=== PATIENT | male | born 1975 | race Caucasian/White ===

== ENCOUNTER 2021-04-20 07:36 | Day surgery (SDC) | payer OTHER ==
[~2021-04-20] VITALS: Ht 177.8 cm; Wt 92.2 kg
[~2021-04-20 07:36] MED LIST: ALBU90OI INH; AMPDEX5 PO; OMEP20ER PO; Robaxin750 MG PO; SILD25T PO
[2021-04-20] MEDS ORDERED: NAPR500 (08:10)
[2021-04-20] MEDS ORDERED: SODBIC650 (08:11)
[2021-04-20] MEDS ORDERED: ADDERALL 10 MG10 MG (08:11)
== END 2021-04-20 10:32 | disposition home or self-care (01) ==
LOC: ORSCSDS 07:36
PROVIDERS: Student in an Organized Health Care Education/Training Program
PROC: 0DBK8ZX Excision of Ascending Colon, Via Natural or Artificial Opening Endoscopic, Diagnostic (ICD-10-PCS; principal; 2021-04-20 09:15)
PROC: 0DB68ZX Excision of Stomach, Via Natural or Artificial Opening Endoscopic, Diagnostic (ICD-10-PCS; principal; 2021-04-20 09:15)
PROC: 0DB98ZX Excision of Duodenum, Via Natural or Artificial Opening Endoscopic, Diagnostic (ICD-10-PCS; principal; 2021-04-20 09:15)
PROC: 0DBN8ZX Excision of Sigmoid Colon, Via Natural or Artificial Opening Endoscopic, Diagnostic (ICD-10-PCS; principal; 2021-04-20 09:15)
DX: K70.30 Alcoholic cirrhosis of liver without ascites (principal); K76.6 Portal hypertension; K31.89 Other diseases of stomach and duodenum; K29.50 Unspecified chronic gastritis without bleeding; K63.5 Polyp of colon; K57.30 Diverticulosis of large intestine without perforation or abscess without bleeding; K64.8 Other hemorrhoids; K64.4 Residual hemorrhoidal skin tags; Z12.11 Encounter for screening for malignant neoplasm of colon; F90.9 Attention-deficit hyperactivity disorder, unspecified type; E78.5 Hyperlipidemia, unspecified; Z79.899 Other long term (current) drug therapy; F17.210 Nicotine dependence, cigarettes, uncomplicated
CPT/HCPCS: 88305; 88342; J2250; J2704; J7040; J7120

== ENCOUNTER 2023-04-25 11:42 | Emergency (ER) | payer OTHER ==
[~2023-04-25] VITALS: Ht 177.8 cm; Wt 90.7 kg
[~2023-04-25 11:42] MED LIST changes: +ADDERALL 10 MG10 MG; +NAPR500; +OMEP20ER; -SILD25T PO; +SODBIC650; +THERA-D2000 UNIT; +Viagra100 MG
[2023-04-25 12:36] LABS: BASOPHILS ABSOLUTE AUTO 0.06 K/mm3 (0.00-0.23); BASOPHILS PERCENT AUTO 1 % (0-2); EOSINOPHILS ABSOLUTE AUTO 0.02 K/mm3 (0.00-0.68); EOSINOPHILS PERCENT AUTO 0 % (0-6); Hematocrit 33.3 % (37.0-53.0); Hemoglobin 11.8 g/dL (13.5-17.5); IMMATURE GRAN ABSOLUTE AUTO 0.03 K/mm3 (0.00-0.10); IMMATURE GRAN PERCENT AUTO 0 % (0-1); LYMPHOCYTES ABSOLUTE AUTO 1.27 K/mm3 (0.84-5.20); LYMPHOCYTES PERCENT AUTO 15 % (21-46); MONOCYTES ABSOLUTE AUTO 0.74 K/mm3 (0.16-1.47); MONOCYTES PERCENT AUTO 9 % (4-13); Mean Corpuscular HGB 34.7 pg (26.0-34.0); Mean Corpuscular HGB Conc 35.4 g/dL (31.5-36.5); Mean Corpuscular Volume 98 fL (80-100); Mean Platelet Volume 10.9 fL (9.1-12.4); NEUTROPHILS ABSOLUTE AUTO 6.14 K/mm3 (1.96-9.15); NEUTROPHILS PERCENT AUTO 74 % (41-73); Platelet Count 101 K/mm3 (150-400); RDW Coefficient Variation 14.6 % (11.7-14.2); RDW Standard Deviation 52.8 fL (35.1-46.3); White Blood Cell Count 8.26 K/mm3 (4.00-11.30)
[2023-04-25 12:50] LABS: Influenza A, PCR NEGATIVE (NEGATIVE); Influenza B, PCR NEGATIVE (NEGATIVE); Resp Syncytial Virus, PCR NEGATIVE (NEGATIVE); SARS-Cov-2 (COVID-19) PCR, MMC NEGATIVE (NEGATIVE)
[2023-04-25 12:53] LABS: Albumin, Blood 2.4 g/dL (3.4-5.0); Albumin/Globulin Ratio 0.5 (0.8-1.8); Bilirubin, Total 6.1 mg/dL (0.1-1.0); Calcium, Blood 7.8 mg/dL (8.5-10.1); Creatinine, Blood 0.61 mg/dL (0.60-1.20); Globulin, Blood 4.5 g/dL (2.2-4.0); Potassium, Blood 4.3 mmol/L (3.5-5.5); Total Protein, Blood 6.9 g/dL (6.4-8.2)
[2023-04-25 13:25] LABS: Source, Urine Clean Catch
[2023-04-25 13:38] LABS: Appearance, Urine Clear (Clear); Blood, Urine Neg (Neg); Color, Urine Amber (P-Yellow); Glucose Qualitative, Urine 1+ (Neg); Ketones, Urine 4+ (Neg); Leukocyte Esterase, Urine 1+ (Neg); Nitrite, Urine Pos (Neg); Protein, Urine 2+ (Neg); Urobilinogen, Urine 1+ (Normal)
[2023-04-25 13:51] LABS: Bilirubin, Urine 1+ (Neg)
[2023-04-25 13:59] LABS: Hyaline Casts 0-2 /lpf (0-2); Mucus Heavy (0-Heavy)
[2023-04-25 14:00] LABS: Red Blood Cells, Urine 0-2 /hpf (0-2); Squamous Epithelial Cells Mod /hpf (Few)
[2023-04-25 14:01] LABS: Amorphous Light (0-Heavy); Bacteria Few /hpf
[2023-04-25 14:02] LABS: Transitional Epithelial Cells Rare /hpf (0-Rare)
[2023-04-25] MEDS ORDERED: Pantoprazole Sodium 40 MG Injection IV ONE (16:15)
[2023-04-25] MEDS ORDERED: CefTRIAXone Sodium 1,000 MG in NS 50 ML IV ONE (16:15)
[2023-04-25] MEDS ORDERED: Octreotide Acetate 50 MCG in NS 50 ML IV ONE (16:15)
[2023-04-25] MEDS ORDERED: Pantoprazole Sodium 40 MG in NS 50 ML IV SCH (16:15)
[2023-04-25 17:05] LABS: Hematocrit 27.9 % (37.0-53.0); Hemoglobin 9.8 g/dL (13.5-17.5)
[2023-04-25] MEDS ORDERED: Octreotide Acetate 500 MCG in NS 250 ML IV SCH (17:10)
[2023-04-25] MEDS ORDERED: NS 1,000 ML IV SCH (17:40)
[2023-04-25 17:48] LABS: International Normalized Ratio 1.57; Prothrombin Time Results 16.1 Sec (9.7-11.5)
[2023-04-25] MEDS ORDERED: Ondansetron HCl 2 MG / ML 2ML Vial IV ONE (18:10)
[2023-04-25 20:28] VITALS: BP 130/71
== END 2023-04-25 20:46 | disposition short-term general hospital (02) ==
LOC: ER 11:42
PROVIDERS: Student in an Organized Health Care Education/Training Program
DX: K92.2 Gastrointestinal hemorrhage, unspecified (principal); D62 Acute posthemorrhagic anemia; I85.00 Esophageal varices without bleeding; E80.7 Disorder of bilirubin metabolism, unspecified; R74.01 Elevation of levels of liver transaminase levels; Z86.59 Personal history of other mental and behavioral disorders; J44.9 Chronic obstructive pulmonary disease, unspecified; Z79.899 Other long term (current) drug therapy
CPT/HCPCS: 0241U; 74177; 80053; 81001; 82248; 83690; 85014; 85018; 85025; 85610; 86850; 86900; 86901; 96365-59; 96366; 96367; 96368; 96375; 96376; 99285-25; C9113; J0696; J2354; J2405; J7050; Q9967

== ENCOUNTER 2023-09-26 06:26 | Emergency (ER) | payer OTHER ==
[~2023-09-26] VITALS: Ht 182.9 cm; Wt 81.7 kg
[2023-09-26] MEDS ORDERED: FentaNYL Citrate 50 MCG/ML 2 ML Injection IV ONE (06:45)
[2023-09-26] MEDS ORDERED: Ondansetron HCl 2 MG / ML 2ML Vial IV ONE (06:45)
[2023-09-26] MEDS ORDERED: Pantoprazole Sodium 40 MG Injection IV ONE (06:45)
[2023-09-26 06:52] LABS: BASOPHILS ABSOLUTE AUTO 0.03 K/mm3 (0.00-0.23); BASOPHILS PERCENT AUTO 1 % (0-2); EOSINOPHILS ABSOLUTE AUTO 0.07 K/mm3 (0.00-0.68); EOSINOPHILS PERCENT AUTO 2 % (0-6); Hematocrit 38.4 % (37.0-53.0); Hemoglobin 12.8 g/dL (13.5-17.5); IMMATURE GRAN PERCENT AUTO 0 % (0-1); LYMPHOCYTES ABSOLUTE AUTO 0.86 K/mm3 (0.84-5.20); LYMPHOCYTES PERCENT AUTO 25 % (21-46); MONOCYTES ABSOLUTE AUTO 0.42 K/mm3 (0.16-1.47); MONOCYTES PERCENT AUTO 12 % (4-13); Mean Corpuscular HGB 28.8 pg (26.0-34.0); Mean Corpuscular HGB Conc 33.3 g/dL (31.5-36.5); Mean Corpuscular Volume 87 fL (80-100); NEUTROPHILS ABSOLUTE AUTO 2.03 K/mm3 (1.96-9.15); NEUTROPHILS PERCENT AUTO 60 % (41-73); Platelet Count 60 K/mm3 (150-400); RDW Coefficient Variation 21.1 % (11.7-14.2); RDW Standard Deviation 66.2 fL (35.1-46.3); Red Blood Cell Count 4.44 M/mm3 (4.30-5.90); White Blood Cell Count 3.41 K/mm3 (4.00-11.30)
[2023-09-26 07:12] LABS: Albumin, Blood 2.6 g/dL (3.4-5.0); Albumin/Globulin Ratio 0.6 (0.8-1.8); Bilirubin, Total 3.4 mg/dL (0.1-1.0); Bun/Creatinine Ratio 11.8 (12.0-20.0); Calcium, Blood 7.7 mg/dL (8.5-10.1); Creatinine, Blood 0.51 mg/dL (0.60-1.20); Globulin, Blood 4.4 g/dL (2.2-4.0); Potassium, Blood 3.8 mmol/L (3.5-5.5)
[2023-09-26 07:13] LABS: International Normalized Ratio 1.47; Prothrombin Time Results 15.3 Sec (9.7-11.5)
[2023-09-26] MEDS ORDERED: Mag Hydrox/AL Hydrox/Simeth 30 ML UDC PO ONE (07:50)
[2023-09-26] MEDS ORDERED: NS 1,000 ML IV SCH (07:50)
[2023-09-26] MEDS ORDERED: Lidocaine 2% Viscous Soln 15 ML UDC PO ONE (07:50)
[2023-09-26] MEDS ORDERED: Sucralfate 1000MG / 10ML UD BTL PO ONE (08:45)
[2023-09-26] MEDS ORDERED: OxyCODONE HCL 5 MG TAB PO ONE (08:45)
[2023-09-26] MEDS ORDERED: SUCR1 PO (09:51)
[2023-09-26] MEDS ORDERED: ONDA4ODT MM (09:51)
[2023-09-26] MEDS ORDERED: Roxicodone5 MG PO (09:51)
[2023-09-26 10:00] VITALS: BP 133/88
== END 2023-09-26 10:12 | disposition home or self-care (01) ==
LOC: ER 06:26
PROVIDERS: Emergency Medicine
DX: K29.70 Gastritis, unspecified, without bleeding (principal); K74.60 Unspecified cirrhosis of liver; Z79.899 Other long term (current) drug therapy
CPT/HCPCS: 74177; 80053; 83690; 84484; 85025; 85610; A9270; C9113; J2405; J3010; J7030; Q9967

== ENCOUNTER 2024-06-07 16:24 | Emergency (ER) | payer OTHER ==
[~2024-06-07] VITALS: Ht 180.3 cm; Wt 88.5 kg
[~2024-06-07 16:24] MED LIST changes: +ONDA4ODT MM; +Roxicodone5 MG PO; +SUCR1 PO
[2024-06-07] MEDS ORDERED: Amoxicillin/Clavulanate K 875 MG Tab PO ONE (19:45)
[2024-06-07] MEDS ORDERED: HYDROcodone 7.5-APAP 325 TAB PO ONE (19:50)
[2024-06-07 20:52] LABS: BASOPHILS ABSOLUTE AUTO 0.01 K/mm3 (0.00-0.23); BASOPHILS PERCENT AUTO 1 % (0-2); Hemoglobin 12.5 g/dL (13.5-17.5); LYMPHOCYTES ABSOLUTE AUTO 0.16 K/mm3 (0.84-5.20); LYMPHOCYTES PERCENT AUTO 7 % (21-46); MONOCYTES PERCENT AUTO 9 % (4-13); Mean Corpuscular HGB 31.6 pg (26.0-34.0); Mean Corpuscular HGB Conc 34.7 g/dL (31.5-36.5); Mean Corpuscular Volume 91 fL (80-100); RDW Coefficient Variation 17.4 % (11.7-14.2); RDW Standard Deviation 58.6 fL (35.1-46.3); Red Blood Cell Count 3.95 M/mm3 (4.30-5.90); White Blood Cell Count 2.19 K/mm3 (4.00-11.30)
[2024-06-07 20:55] LABS: EOSINOPHILS ABSOLUTE AUTO 0.01 K/mm3 (0.00-0.68); EOSINOPHILS PERCENT AUTO 1 % (0-6); IMMATURE GRAN ABSOLUTE AUTO 0.02 K/mm3 (0.00-0.10); IMMATURE GRAN PERCENT AUTO 1 % (0-1); NEUTROPHILS ABSOLUTE AUTO 1.79 K/mm3 (1.96-9.15); NEUTROPHILS PERCENT AUTO 82 % (41-73)
[2024-06-07 20:56] LABS: Platelet Count 27 K/mm3 (150-400)
[2024-06-07 21:05] LABS: International Normalized Ratio 1.5; Prothrombin Time Results 15.6 Sec (9.7-11.5)
[2024-06-07 21:12] LABS: Albumin, Blood 2.1 g/dL (3.4-5.0); Albumin/Globulin Ratio 0.5 (0.8-1.8); Bilirubin, Total 4.9 mg/dL (0.1-1.0); Bun/Creatinine Ratio 15.7 (12.0-20.0); Calcium, Blood 7.5 mg/dL (8.5-10.1); Creatinine, Blood 0.64 mg/dL (0.60-1.20); Globulin, Blood 3.9 g/dL (2.2-4.0); Potassium, Blood 3.8 mmol/L (3.5-5.5)
[2024-06-07] MEDS ORDERED: Octreotide Acetate 50 MCG in NS 50 ML IV ONE (21:35)
[2024-06-07] MEDS ORDERED: NS 1,000 ML IV SCH (21:40)
[2024-06-07] MEDS ORDERED: FentaNYL Citrate 50 MCG/ML 2 ML Injection IV ONE (21:40)
[2024-06-07] MEDS ORDERED: CefTRIAXone 2000 MG Vial IM ONE (21:40)
[2024-06-07] MEDS ORDERED: Pantoprazole Sodium 40 MG Injection IV ONE (21:40)
[2024-06-08] MEDS ORDERED: Octreotide Acetate 500 MCG in NS 250 ML IV SCH (00:05)
[2024-06-08 01:00] VITALS: BP 114/66
== END 2024-06-08 01:37 | disposition short-term general hospital (02) ==
LOC: ER 16:24
PROVIDERS: Student in an Organized Health Care Education/Training Program
DX: K92.0 Hematemesis (principal); I85.00 Esophageal varices without bleeding; K72.90 Hepatic failure, unspecified without coma; L03.211 Cellulitis of face; Z79.899 Other long term (current) drug therapy; Z79.1 Long term (current) use of non-steroidal anti-inflammatories (NSAID); Z79.01 Long term (current) use of anticoagulants; Z79.51 Long term (current) use of inhaled steroids; Z79.890 Hormone replacement therapy; Z79.2 Long term (current) use of antibiotics
CPT/HCPCS: 36430; 64400; 70491; 80053; 82140; 83690; 85025; 85610; 85730; 86850; 86900; 86901; 93005; 93010; 96361; 96365; 96366; 96372; 96375; 99285-25; A9270; J0696; J2354; J2470; J3010; J7030; J7050; P9035; Q9967

== ENCOUNTER 2024-06-10 21:17 | Inpatient (IN) | payer OTHER ==
[~2024-06-10] VITALS: Ht 177.8 cm; Wt 85.0 kg
[2024-06-10 22:14] LABS: BASOPHILS ABSOLUTE AUTO 0.05 K/mm3 (0.00-0.23); BASOPHILS PERCENT AUTO 1 % (0-2); EOSINOPHILS ABSOLUTE AUTO 0.09 K/mm3 (0.00-0.68); EOSINOPHILS PERCENT AUTO 2 % (0-6); Hematocrit 39.7 % (37.0-53.0); Hemoglobin 13.5 g/dL (13.5-17.5); IMMATURE GRAN ABSOLUTE AUTO 0.08 K/mm3 (0.00-0.10); IMMATURE GRAN PERCENT AUTO 2 % (0-1); LYMPHOCYTES ABSOLUTE AUTO 0.72 K/mm3 (0.84-5.20); LYMPHOCYTES PERCENT AUTO 16 % (21-46); MONOCYTES ABSOLUTE AUTO 0.65 K/mm3 (0.16-1.47); MONOCYTES PERCENT AUTO 15 % (4-13); Mean Corpuscular HGB 31.9 pg (26.0-34.0); Mean Corpuscular Volume 94 fL (80-100); NEUTROPHILS ABSOLUTE AUTO 2.82 K/mm3 (1.96-9.15); NEUTROPHILS PERCENT AUTO 64 % (41-73); RDW Coefficient Variation 17.6 % (11.7-14.2); RDW Standard Deviation 60.3 fL (35.1-46.3); Red Blood Cell Count 4.23 M/mm3 (4.30-5.90); White Blood Cell Count 4.41 K/mm3 (4.00-11.30)
[2024-06-10 22:25] LABS: Albumin, Blood 2.1 g/dL (3.4-5.0); Albumin/Globulin Ratio 0.5 (0.8-1.8); Bilirubin, Total 8.5 mg/dL (0.1-1.0); Bun/Creatinine Ratio 16.4 (12.0-20.0); Calcium, Blood 7.8 mg/dL (8.5-10.1); Creatinine, Blood 0.61 mg/dL (0.60-1.20); Globulin, Blood 4.5 g/dL (2.2-4.0); Potassium, Blood 4.3 mmol/L (3.5-5.5); Total Protein, Blood 6.6 g/dL (6.4-8.2)
[2024-06-10 22:26] LABS: Platelet Count 27 K/mm3 (150-400)
[2024-06-10] MEDS ORDERED: OxyCODONE HCL 5 MG TAB PO ONE (23:10)
[2024-06-10] MEDS ORDERED: Ondansetron 4 MG TAB PO ONE (23:10)
[2024-06-11] MEDS ORDERED: HYDROmorphone HCl/Pf 1MG SYR IV ONE (00:45)
[2024-06-11] MEDS ORDERED: Ondansetron HCl 2 MG / ML 2ML Vial IV PRN (03:10)
[2024-06-11] MEDS ORDERED: OxyCODONE HCL 5 MG TAB PO PRN (03:10)
[2024-06-11] MEDS ORDERED: Naloxone HCl 0.4MG / ML 1ML Vial IV PRN (03:15)
[2024-06-11] MEDS ORDERED: Acetaminophen 325 MG TABLET PO PRN (03:15)
[2024-06-11] MEDS ORDERED: HYDROmorphone HCl/Pf 1MG SYR IV PRN (03:15)
[2024-06-11] MEDS ORDERED: NS 1,000 ML IV SCH (04:00)
[2024-06-11] MEDS ORDERED: AMPDEX10 (07:18)
[2024-06-11] MEDS ORDERED: Carvedilol 3.125 MG Tab PO SCH (08:00)
[2024-06-11] MEDS ORDERED: LORazepam 2 MG/ML 1ML Injection IV PRN ×2 (09:00→09:05)
[2024-06-11] MEDS ORDERED: ChlordiazePOXIDE 25 MG Cap PO PRN ×2 (09:00→09:05)
[2024-06-11] MEDS ORDERED: Docusate Sodium 100 MG Cap PO SCH (09:00)
[2024-06-11] MEDS ORDERED: Thiamine HCl 100 MG in NS 50 ML IV SCH (09:30)
[2024-06-11 09:50] LABS: Bilirubin, Direct 5.5 mg/dL (0.0-0.3); Bilirubin, Indirect 2.4 mg/dL (0.1-0.7); Bilirubin, Total 7.9 mg/dL (0.1-1.0); CHOL/HDL RATIO 6.5; Cholesterol 85 mg/dL (50-200); Ethanol (Alcohol), Blood, Med <3 mg/dL; HDL Cholesterol 13 mg/dL (>39); LDL/HDL RATIO 3.4; Lactate Dehydrogenase (Ld),Bld 211 U/L (100-240); Low Density Lipoprotein Chol 44 mg/dL (0-110); Triglycerides 140 mg/dL (30-160); Very Low Density Lipoprot Chol 28 mg/dL (6-32)
[2024-06-11] MEDS ORDERED: Folic Acid 1 MG in NS 50 ML IV SCH (10:00)
[2024-06-11 10:45] LABS: Hematocrit 35.2 % (37.0-53.0)
[2024-06-11] MEDS ORDERED: Octreotide Acetate 500 MCG in NS 250 ML IV SCH (11:30)
[2024-06-11] MEDS ORDERED: CefTRIAXone Sodium 1,000 MG in NS 100 ML IV SCH (11:45)
[2024-06-11 11:50] LABS: IMMATURE RETIC FRACTION 16.9 % (2.3-16.0); RETIC HGB EQUIVALENT 37.9 pg (28.20-36.60); RETICULOCYTE ABSOLUTE 0.1016 M/mm3 (0.0200-0.1100); RETICULOCYTE COUNT PERCENT 2.68 % (0.50-2.50)
[2024-06-11 13:33] LABS: BASOPHILS ABSOLUTE AUTO 0.05 K/mm3 (0.00-0.23); BASOPHILS PERCENT AUTO 1 % (0-2); EOSINOPHILS ABSOLUTE AUTO 0.12 K/mm3 (0.00-0.68); EOSINOPHILS PERCENT AUTO 3 % (0-6); Hematocrit 34.6 % (37.0-53.0); Hemoglobin 11.8 g/dL (13.5-17.5); IMMATURE GRAN ABSOLUTE AUTO 0.09 K/mm3 (0.00-0.10); IMMATURE GRAN PERCENT AUTO 2 % (0-1); LYMPHOCYTES ABSOLUTE AUTO 0.75 K/mm3 (0.84-5.20); LYMPHOCYTES PERCENT AUTO 17 % (21-46); MONOCYTES ABSOLUTE AUTO 0.85 K/mm3 (0.16-1.47); MONOCYTES PERCENT AUTO 20 % (4-13); Mean Corpuscular HGB 32.1 pg (26.0-34.0); Mean Corpuscular HGB Conc 34.1 g/dL (31.5-36.5); Mean Corpuscular Volume 94 fL (80-100); Mean Platelet Volume 10.3 fL (9.1-12.4); NEUTROPHILS ABSOLUTE AUTO 2.45 K/mm3 (1.96-9.15); NEUTROPHILS PERCENT AUTO 57 % (41-73); Platelet Count 56 K/mm3 (150-400); RDW Coefficient Variation 17.4 % (11.7-14.2); RDW Standard Deviation 60.2 fL (35.1-46.3); Red Blood Cell Count 3.68 M/mm3 (4.30-5.90); White Blood Cell Count 4.31 K/mm3 (4.00-11.30)
[2024-06-11 14:09] LABS: Source, Urine Clean Catch
[2024-06-11 15:04] LABS: Appearance, Urine Clear (Clear); Blood, Urine Neg (Neg); Color, Urine Amber (P-Yellow); Glucose Qualitative, Urine Neg (Neg); Ketones, Urine Neg (Neg); Leukocyte Esterase, Urine Neg (Neg); Nitrite, Urine Neg (Neg); Protein, Urine Neg (Neg); Urobilinogen, Urine 3+ (Normal); pH, Urine 6.5 (5.0-8.0)
[2024-06-11 16:03] LABS: Bilirubin, Urine 1+ (Neg)
[2024-06-11 16:18] VITALS: BP 127/85
[2024-06-11] MEDS ORDERED: Pantoprazole Sodium 40 MG Injection IV SCH (16:30)
--- NOTE | 2024-06-11 18:22 | NUR ---
SHIFT NOTE PT RESTING. C/O OF HIS TEETH HURTING ON THE LEFT SIDE. MEDICATED WITH ORAL PAIN MEDICATION. PT RANKED HIS TOOTH PAIN 8/10. HIS ABD DISCOMFORT A 3/10. HE STATED THAT THE TOOTH PAIN HAS BEEN GETTING WORSE OVER SEVERAL WEEKS. DR MEYERS CALLED SHE IS REFERRRING HIS GI CONSULT TO DR NGUYEN D/T PT HAVING CYROSIS. VSS. VOIDED X1. URINE ORANGISH. SANDOSTATIN INFUSING AT 25 ML/HR. 0.9% NS INFUSING AT 100 ML/HR BAG #2 HANGING. CARE ONGOING.
[2024-06-11 20:21] VITALS: BP 111/74
[2024-06-12] MEDS ORDERED: NS 250 ML IV PRN (00:40)
--- NOTE | 2024-06-12 02:59 | NUR ---
SHIFT SUMMARY NO ACUTE EVENTS DURING THIS SHIFT. NPO. PT C/O 10/07 ABDOMINAL PAIN, MEDICATED PER EMAR. FINISHED INFUSING THE 2ND BAG OF NS ORDERED. Q6 BG 97 @MIDNIGHT. PT DENIES N/V. NO COUGH NOTED DURING THIS SHIFT. BED AT THE LOWEST POSITION, CALL LIGHT W/I REACH. PT IS A/O X4, TALKATIVE, ABLE TO MAKE HIS NEEDS KNOWN AND COOPERATIVE WITH CARE.
[2024-06-12 05:32] LABS: BASOPHILS ABSOLUTE AUTO 0.07 K/mm3 (0.00-0.23); BASOPHILS PERCENT AUTO 2 % (0-2); EOSINOPHILS ABSOLUTE AUTO 0.11 K/mm3 (0.00-0.68); EOSINOPHILS PERCENT AUTO 3 % (0-6); Hematocrit 39.1 % (37.0-53.0); Hemoglobin 13.4 g/dL (13.5-17.5); IMMATURE GRAN ABSOLUTE AUTO 0.15 K/mm3 (0.00-0.10); IMMATURE GRAN PERCENT AUTO 4 % (0-1); LYMPHOCYTES ABSOLUTE AUTO 0.73 K/mm3 (0.84-5.20); LYMPHOCYTES PERCENT AUTO 18 % (21-46); MONOCYTES ABSOLUTE AUTO 0.66 K/mm3 (0.16-1.47); MONOCYTES PERCENT AUTO 17 % (4-13); Mean Corpuscular HGB Conc 34.3 g/dL (31.5-36.5); Mean Corpuscular Volume 93 fL (80-100); Mean Platelet Volume 10.3 fL (9.1-12.4); NEUTROPHILS ABSOLUTE AUTO 2.27 K/mm3 (1.96-9.15); NEUTROPHILS PERCENT AUTO 57 % (41-73); Platelet Count 58 K/mm3 (150-400); RDW Coefficient Variation 17.5 % (11.7-14.2); RDW Standard Deviation 59.3 fL (35.1-46.3); Red Blood Cell Count 4.19 M/mm3 (4.30-5.90); White Blood Cell Count 3.99 K/mm3 (4.00-11.30)
[2024-06-12 05:58] LABS: Albumin/Globulin Ratio 0.5 (0.8-1.8); Bilirubin, Total 9.7 mg/dL (0.1-1.0); Calcium, Blood 7.8 mg/dL (8.5-10.1); Creatinine, Blood 0.53 mg/dL (0.60-1.20); Globulin, Blood 3.9 g/dL (2.2-4.0); Potassium, Blood 4.4 mmol/L (3.5-5.5); Total Protein, Blood 5.9 g/dL (6.4-8.2)
[2024-06-12 06:07] VITALS: BP 107/57
[2024-06-12 07:29] VITALS: BP 103/65
[2024-06-12] MEDS ORDERED: Polyethylene Glycol 3350 17 gm PO PRN (08:15)
[2024-06-12] MEDS ORDERED: Sennosides 8.6 MG Tab PO PRN (08:15)
[2024-06-12] MEDS ORDERED: Docusate Sodium 100 MG Cap PO SCH (09:00)
[2024-06-12] MEDS ORDERED: Insulin Human Lispro 100 Units/ML 3ML Syringe SC SCH (11:30)
--- NOTE | 2024-06-12 12:03 | NUR ---
[facility] RX DR WALKER REQUESTED CALL TO PT STATED PHARAMCY. VERIFIES 3 NEW PERSCRIPTIONS FROM [facility]. 1. PROTONIX 40MG DAILY 2. CIPRO 500MG PO BID X5 DAYS 3. HYDROCODONE/APAP 5/325MG-1 TAB Q6H PRN PAIN. CARE ONGOING.
[2024-06-12 16:15] VITALS: BP 122/74
--- NOTE | 2024-06-12 18:30 | NUR ---
SHIFT NOTE PT ATE REGULAR DIET QUICKLY FOR DINNER. HE WAS CAUTIONED TO EAT SLOWLY. AC/HS BLOOD SUGAR. COVERED WITH SLIDING SCALE INSULIN PER ORDER. MEDICATED FOR PAIN PER EMAR. IV SITE FLUSHJING WITH OUT DISCOMFORT. WITH ENCOURAGEMENT PT IS UP IN ROOM AND USING THE BATHROOM. VOIDED URINE DARK BROWN/A,IKE CLEAR. SKIN CONTINUES TO BE YELLOWISH IN COLOR. CARE ONGOING.
[2024-06-12 19:04] VITALS: BP 99/59
[2024-06-12 21:25] VITALS: BP 106/63
[2024-06-13 04:26] VITALS: BP 103/57
[2024-06-13 07:26] VITALS: BP 105/69
[2024-06-13] MEDS ORDERED: MIRALAX17 GM PO (13:57)
[2024-06-13] MEDS ORDERED: Colace100 MG PO (13:57)
[2024-06-13] MEDS ORDERED: CIPR500 PO (13:58)
[2024-06-13] MEDS ORDERED: Inderal40 MG PO (13:59)
[2024-06-13] MEDS ORDERED: SUCR1 PO (14:00)
--- NOTE | 2024-06-13 15:05 | NUR ---
DISCHARGE PT AOX4, COOPERATIVE, ABLE TO MAKE NEEDS KNOWN. PT AMBULATORY IN ROOM. MILD COMPLAINTS OF PAIN. THIS RN WENT OVER DC PAPERWORK WITH PT. PT ACKNOWLEDGED INSTRUCTIONS AND EDUCATION. THIS RN DC'D IV WITH EVENTS. PT WAS TAKEN OUT OF ROOM IN WHEELCHAIR BY CERTIFIED PHYSICIAN'S ASSISTANT. BELONGINGS WENT WITH PT.
[2024-06-13 15:28] LABS: PETH 16:0/18:1 (POPETH) 548 ng/mL; PETH 16:0/18:2 (PLPETH) 876 ng/mL
== END 2024-06-13 15:04 | disposition home or self-care (01) | DRG 378 ==
LOC: ER 21:17 → ERHOLD 21:18 → MEDS 06-11 14:43 → ERHOLD 06-11 14:44 → MEDS 06-11 16:13
PROVIDERS: Family Medicine; Student in an Organized Health Care Education/Training Program; ADMIT Student in an Organized Health Care Education/Training Program
DX: K29.71 Gastritis, unspecified, with bleeding (principal); E72.20 Disorder of urea cycle metabolism, unspecified; E87.1 Hypo-osmolality and hyponatremia; K86.1 Other chronic pancreatitis; K70.30 Alcoholic cirrhosis of liver without ascites; F17.210 Nicotine dependence, cigarettes, uncomplicated; E80.6 Other disorders of bilirubin metabolism; D69.6 Thrombocytopenia, unspecified; K70.9 Alcoholic liver disease, unspecified; E11.9 Type 2 diabetes mellitus without complications; E66.3 Overweight; F10.10 Alcohol abuse, uncomplicated; K59.00 Constipation, unspecified; Z79.51 Long term (current) use of inhaled steroids; Z79.899 Other long term (current) drug therapy; Z79.891 Long term (current) use of opiate analgesic; Z87.19 Personal history of other diseases of the digestive system
CPT/HCPCS: 36415; 74177; 80053; 80061; 80320; 81003; 82140; 82247; 82248; 82947; 82977; 83036; 83615; 83690; 85014; 85018; 85025; 85045; 93005; 93010; 96361; 96365-59; 96366; 96367; 96375; 96376; 99285-25; A9270; G0378; G0480; J0696; J1171; J2354; J2405; J2470; J3411; J7030; J7050; Q9967

== ENCOUNTER 2024-08-26 05:35 | Emergency (ER) | payer OTHER ==
[~2024-08-26] VITALS: Ht 177.8 cm; Wt 95.2 kg
[~2024-08-26 05:35] MED LIST changes: +AMPDEX10; +Aldactone50 MG PO; +CIPR500 PO; +Colace100 MG PO; +Inderal40 MG PO; +Lasix20 MG PO; +MIRALAX17 GM PO
[2024-08-26 06:10] LABS: BASOPHILS ABSOLUTE AUTO 0.04 K/mm3 (0.00-0.23); BASOPHILS PERCENT AUTO 1 % (0-2); EOSINOPHILS ABSOLUTE AUTO 0.11 K/mm3 (0.00-0.68); EOSINOPHILS PERCENT AUTO 2 % (0-6); Hematocrit 32.6 % (37.0-53.0); Hemoglobin 10.9 g/dL (13.5-17.5); IMMATURE GRAN ABSOLUTE AUTO 0.02 K/mm3 (0.00-0.10); IMMATURE GRAN PERCENT AUTO 0 % (0-1); LYMPHOCYTES ABSOLUTE AUTO 1.32 K/mm3 (0.84-5.20); LYMPHOCYTES PERCENT AUTO 29 % (21-46); MONOCYTES ABSOLUTE AUTO 0.88 K/mm3 (0.16-1.47); MONOCYTES PERCENT AUTO 19 % (4-13); Mean Corpuscular HGB 32.4 pg (26.0-34.0); Mean Corpuscular HGB Conc 33.4 g/dL (31.5-36.5); Mean Corpuscular Volume 97 fL (80-100); Mean Platelet Volume 10.9 fL (9.1-12.4); NEUTROPHILS ABSOLUTE AUTO 2.23 K/mm3 (1.96-9.15); NEUTROPHILS PERCENT AUTO 49 % (41-73); Platelet Count 66 K/mm3 (150-400); RDW Standard Deviation 67.6 fL (35.1-46.3); Red Blood Cell Count 3.36 M/mm3 (4.30-5.90)
[2024-08-26 06:22] LABS: Albumin/Globulin Ratio 0.4 (0.8-1.8); Bilirubin, Total 5.9 mg/dL (0.1-1.0); Bun/Creatinine Ratio 11.1 (12.0-20.0); Calcium, Blood 7.3 mg/dL (8.5-10.1); Creatinine, Blood 0.63 mg/dL (0.60-1.20); Globulin, Blood 4.6 g/dL (2.2-4.0); Potassium, Blood 3.6 mmol/L (3.5-5.5); Total Protein, Blood 6.6 g/dL (6.4-8.2)
[2024-08-26] MEDS ORDERED: FentaNYL Citrate 50 MCG/ML 2 ML Injection IV ONE (06:40)
[2024-08-26] MEDS ORDERED: Magnesium Sulf 2 GM/Water 50ML 50 ML IV ONE (06:50)
[2024-08-26] MEDS ORDERED: Calcium Gluconate 10% 1,000 MG in NS 50 ML IV ONE (06:50)
[2024-08-26] MEDS ORDERED: Diazepam 5 MG / ML 2ML SYR IV ONE (08:05)
[2024-08-26 09:27] LABS: U Amphetamine Screen DETECTED; U Barbituate Screen Not Detected; U Benzodiazapine Screen Not Detected; U Buprenorphine Screen Not Detected; U Cannabinoids Screen DETECTED; U Cocaine Screen Not Detected; U Methadone Screen Not Detected; U Methamphetamine Screen Not Detected; U Opiates Screen Not Detected; U Oxycodone Screen Not Detected; U Phencyclidine Screen Not Detected
[2024-08-26] MEDS ORDERED: OLANZapine ODT 5 MG Tab MM ONE (10:30)
[2024-08-26 11:00] VITALS: BP 136/87
== END 2024-08-26 11:30 | disposition home or self-care (01) ==
LOC: ER 05:35
PROVIDERS: Emergency Medicine; Student in an Organized Health Care Education/Training Program
DX: E83.51 Hypocalcemia (principal); M79.10 Myalgia, unspecified site; K70.30 Alcoholic cirrhosis of liver without ascites; F17.200 Nicotine dependence, unspecified, uncomplicated; Z79.899 Other long term (current) drug therapy
CPT/HCPCS: 80053; 82140; 82330; 82550; 83735; 85025; 96365; 96375; 99283-25; A9270; J0612; J3010; J3360; J3475

== ENCOUNTER 2024-10-18 09:15 | Day surgery (SDC) | payer OTHER ==
[~2024-10-18] VITALS: Ht 177.8 cm; Wt 90.1 kg
[2024-10-18] MEDS ORDERED: CARV3.125 (09:40)
[2024-10-18] MEDS ORDERED: METO10 (09:40)
[2024-10-18] MEDS ORDERED: LACT10SY (09:40)
[2024-10-18] MEDS ORDERED: PROTONIX (09:40)
[2024-10-18] MEDS ORDERED: FentaNYL Citrate 50 MCG/ML 2 ML Injection ONE (10:40)
[2024-10-18 11:12] VITALS: BP 135/72
== END 2024-10-18 11:21 | disposition home or self-care (01) ==
LOC: ORSCSDS 09:15
PROVIDERS: Internal Medicine Gastroenterology
PROC: 0DB68ZX Excision of Stomach, Via Natural or Artificial Opening Endoscopic, Diagnostic (ICD-10-PCS; principal; 2024-10-18 10:45)
PROC: 06L38CZ Occlusion of Esophageal Vein with Extraluminal Device, Via Natural or Artificial Opening Endoscopic (ICD-10-PCS; principal; 2024-10-18 10:45)
DX: K74.60 Unspecified cirrhosis of liver (principal); I85.00 Esophageal varices without bleeding; Z85.05 Personal history of malignant neoplasm of liver; K76.82 Hepatic encephalopathy; K29.50 Unspecified chronic gastritis without bleeding; F32.A Depression, unspecified; F90.9 Attention-deficit hyperactivity disorder, unspecified type; K76.6 Portal hypertension; G89.18 Other acute postprocedural pain; R07.89 Other chest pain; K76.9 Liver disease, unspecified; F17.210 Nicotine dependence, cigarettes, uncomplicated; Z87.11 Personal history of peptic ulcer disease; Z79.899 Other long term (current) drug therapy
CPT/HCPCS: 71260; 80053; 83690; 83735; 84484; 85025; 88305; 93005; 93010; 96374-59; 96375-59; 99284-25; A9270; J2405; J2470; J2704; J3010; J7120; Q9967

== ENCOUNTER 2024-10-18 17:25 | Emergency (ER) | payer OTHER ==
[~2024-10-18] VITALS: Ht 177.8 cm; Wt 90.7 kg
[~2024-10-18 17:25] MED LIST changes: +CARV3.125; +LACT10SY; +METO10; +PROTONIX
[2024-10-18] MEDS ORDERED: FentaNYL Citrate 50 MCG/ML 2 ML Injection IV ONE (17:30)
[2024-10-18] MEDS ORDERED: Ondansetron HCl 2 MG / ML 2ML Vial IV ONE (17:30)
[2024-10-18 17:57] LABS: BASOPHILS ABSOLUTE AUTO 0.03 K/mm3 (0.00-0.23); BASOPHILS PERCENT AUTO 1 % (0-2); EOSINOPHILS ABSOLUTE AUTO 0.06 K/mm3 (0.00-0.68); EOSINOPHILS PERCENT AUTO 2 % (0-6); Hematocrit 31.9 % (37.0-53.0); Hemoglobin 10.7 g/dL (13.5-17.5); IMMATURE GRAN ABSOLUTE AUTO 0.01 K/mm3 (0.00-0.10); IMMATURE GRAN PERCENT AUTO 0 % (0-1); LYMPHOCYTES ABSOLUTE AUTO 0.47 K/mm3 (0.84-5.20); LYMPHOCYTES PERCENT AUTO 18 % (21-46); MONOCYTES ABSOLUTE AUTO 0.33 K/mm3 (0.16-1.47); MONOCYTES PERCENT AUTO 12 % (4-13); Mean Corpuscular HGB Conc 33.5 g/dL (31.5-36.5); Mean Corpuscular Volume 95 fL (80-100); NEUTROPHILS ABSOLUTE AUTO 1.76 K/mm3 (1.96-9.15); NEUTROPHILS PERCENT AUTO 66 % (41-73); NRBC ABSOLUTE 0.00 K/mm3 (0.00-0.02); NRBC Auto 0.0 /100 WBC (0.0-0.2); Platelet Count 56 K/mm3 (150-400); RDW Coefficient Variation 15.9 % (11.7-14.2); RDW Standard Deviation 55.3 fL (35.1-46.3)
[2024-10-18 18:20] LABS: Alanine Aminotransfer (ALT/SGP 21.0 U/L (12-78); Albumin, Blood 1.9 g/dL (3.4-5.0); Albumin/Globulin Ratio 0.4 (0.8-1.8); Anion Gap 8.0 mmol/L (3-11); Aspartate Aminotrans (AST/SGOT 62.0 U/L (12-37); Bilirubin, Total 6.2 mg/dL (0.1-1.0); Blood Urea Nitrogen 7.0 mg/dL (8-24); CO2, Blood 24.0 mmol/L (21-32); Calcium, Blood 7.4 mg/dL (8.5-10.1); Chloride, Blood 107.0 mmol/L (98-108); Creatinine, Blood 0.51 mg/dL (0.60-1.20); Globulin, Blood 4.5 g/dL (2.2-4.0); Glucose, Blood 245.0 mg/dL (70-99); Potassium, Blood 4.0 mmol/L (3.5-5.5); Sodium, Blood 135.0 mmol/L (136-145); Total Protein, Blood 6.4 g/dL (6.4-8.2)
[2024-10-18] MEDS ORDERED: Lidocaine 2% Viscous Soln 15 ML UDC PO ONE (18:40)
[2024-10-18] MEDS ORDERED: Sucralfate 1000MG / 10ML UD BTL PO ONE (19:40)
[2024-10-18 19:45] VITALS: BP 125/81
[2024-10-18] MEDS ORDERED: Pantoprazole Sodium 40 MG Injection IV ONE (19:45)
[2024-10-18] MEDS ORDERED: RX Prepack 2 Tabs Ondansetron ODT 4MG UD ONE (19:45)
== END 2024-10-18 20:17 | disposition home or self-care (01) ==
LOC: ER 17:25
PROVIDERS: Emergency Medicine
DX: G89.18 Other acute postprocedural pain (principal); R07.89 Other chest pain; K76.9 Liver disease, unspecified; F17.200 Nicotine dependence, unspecified, uncomplicated; Z79.899 Other long term (current) drug therapy
CPT/HCPCS: 71260; 80053; 83690; 83735; 84484; 85025; 93005; 93010; 96374-59; 96375-59; 99284-25; A9270; J2405; J2470; J3010; Q9967

== ENCOUNTER 2024-11-04 05:24 | Emergency (ER) | payer OTHER ==
[~2024-11-04] VITALS: Ht 177.8 cm; Wt 90.7 kg
[2024-11-04] MEDS ORDERED: Ondansetron HCl 2 MG / ML 2ML Vial ONE (05:31)
[2024-11-04] MEDS ORDERED: CefTRIAXone Sodium 1,000 MG in NS 100 ML IV ONE (05:35)
[2024-11-04] MEDS ORDERED: Pantoprazole Sodium 40 MG Injection IV ONE (05:35)
[2024-11-04] MEDS ORDERED: Ondansetron HCl 2 MG / ML 2ML Vial IV ONE (05:35)
[2024-11-04 05:42] LABS: BASOPHILS ABSOLUTE AUTO 0.04 K/mm3 (0.00-0.23); BASOPHILS PERCENT AUTO 1 % (0-2); EOSINOPHILS ABSOLUTE AUTO 0.14 K/mm3 (0.00-0.68); EOSINOPHILS PERCENT AUTO 2 % (0-6); Hematocrit 28.2 % (37.0-53.0); Hemoglobin 9.5 g/dL (13.5-17.5); IMMATURE GRAN ABSOLUTE AUTO 0.07 K/mm3 (0.00-0.10); IMMATURE GRAN PERCENT AUTO 1 % (0-1); LYMPHOCYTES ABSOLUTE AUTO 1.14 K/mm3 (0.84-5.20); LYMPHOCYTES PERCENT AUTO 19 % (21-46); MONOCYTES ABSOLUTE AUTO 0.73 K/mm3 (0.16-1.47); MONOCYTES PERCENT AUTO 12 % (4-13); Mean Corpuscular HGB Conc 33.7 g/dL (31.5-36.5); Mean Corpuscular Volume 97 fL (80-100); NEUTROPHILS ABSOLUTE AUTO 3.80 K/mm3 (1.96-9.15); NEUTROPHILS PERCENT AUTO 64 % (41-73); NRBC ABSOLUTE 0.00 K/mm3 (0.00-0.02); NRBC Auto 0.0 /100 WBC (0.0-0.2); Platelet Count 69 K/mm3 (150-400); RDW Coefficient Variation 17.1 % (11.7-14.2); RDW Standard Deviation 60.0 fL (35.1-46.3)
[2024-11-04] MEDS ORDERED: Mag Sulfate 1 GM/D5% 100ML 100 ML IV ONE (05:45)
[2024-11-04 05:55] LABS: Prothrombin Time Results 19.0 Sec (9.7-11.5)
[2024-11-04 05:58] LABS: Alanine Aminotransfer (ALT/SGP 24.0 U/L (12-78); Albumin, Blood 1.7 g/dL (3.4-5.0); Albumin/Globulin Ratio 0.4 (0.8-1.8); Anion Gap 13.0 mmol/L (3-11); Aspartate Aminotrans (AST/SGOT 55.0 U/L (12-37); Bilirubin, Total 4.5 mg/dL (0.1-1.0); Blood Urea Nitrogen 11.0 mg/dL (8-24); CO2, Blood 19.0 mmol/L (21-32); Calcium, Blood 7.3 mg/dL (8.5-10.1); Chloride, Blood 108.0 mmol/L (98-108); Creatinine, Blood 0.51 mg/dL (0.60-1.20); Ethanol (Alcohol), Blood, Med 48.0 mg/dL; Globulin, Blood 4.2 g/dL (2.2-4.0); Glucose, Blood 151.0 mg/dL (70-99); Potassium, Blood 3.8 mmol/L (3.5-5.5); Sodium, Blood 136.0 mmol/L (136-145); Total Protein, Blood 5.9 g/dL (6.4-8.2)
[2024-11-04] MEDS ORDERED: Metoclopramide HCl 5MG / ML 2ML Vial IV ONE (06:15)
[2024-11-04 08:15] VITALS: BP 114/63
== END 2024-11-04 09:06 | disposition home or self-care (01) ==
LOC: ER 05:24
PROVIDERS: Emergency Medicine
DX: K92.0 Hematemesis (principal); D69.6 Thrombocytopenia, unspecified; Z87.19 Personal history of other diseases of the digestive system; Z79.899 Other long term (current) drug therapy; F17.200 Nicotine dependence, unspecified, uncomplicated
CPT/HCPCS: 80053; 80320; 83690; 85025; 85610; 85730; 86850; 86900; 86901; 93005; 93010; 96365; 96366; 96367; 96368; 96375; 99285-25; J0696; J2354; J2405; J2470; J2765; J3475